=== PATIENT | female | born 1950 | race Caucasian/White ===

== ENCOUNTER 2019-04-30 07:41 | Day surgery (SDC) | payer MEDICARE, OTHER ==
[~2019-04-30] VITALS: Ht 152.4 cm; Wt 83.5 kg
[~2019-04-30 07:41] MED LIST: ASPIRIN EC81 MG PO; ATORVASTATIN CA40 MG PO; COZAAR100 MG PO; FENOFIBRATE160 MG PO; KLOR-CON M2020 MEQ PO; METOPROLOL SUCC50 MG PO; MULTI-VITAMIN1 EACH PO; TRIAMTERENE-HC1 EAC3 PO; VITAMIN D32000 UNI1 PO
--- NOTE | 2019-04-30 08:52 | NUR ---
ADVISED MARISOL CHEW THAT PATIENT STILL HAVING BM, MOSTLY LIQUID. UP TO RESTROOM 3 TIMES WHILE CHECKING PATIENT IN.
--- NOTE | 2019-04-30 09:16 | NUR ---
04/30/19 0916 Sheets,Faith 0903 PT ARRIVED TO PACU, PT WAKES TO TACTILE STIMULI AND RESP EVEN AND UNLABORED ON 2L VIA NC. 904 CO2 DECREASED AND RN WAKES PT AND ENCOURAGES DEEP BREATHING. PT FALLS EASILY BACK TO SLEEP.
--- NOTE | 2019-05-01 07:14 | OR ---
[facility] [address] [place], [place] [address] Signed DATE OF OPERATION: 04/30/2019 SURGEON: Chelly Yousif MD PREOPERATIVE DIAGNOSES: 1. Hyperplastic polyps in 2003 and 2008. 2. Internal hemorrhoids. POSTOPERATIVE DIAGNOSES: 1. Minimal sigmoid diverticulosis. 2. Xbzbhbm-vx-phpaoxcs internal hemorrhoids. PROCEDURE PERFORMED: Colonoscopy without biopsy. ESTIMATED BLOOD LOSS: None. INDICATIONS: Jose is a 68-year-old female asked to see me for followup colonoscopy. She had a tiny hyperplastic polyp removed from her distal sigmoid colon in [address] Venancio Whitaker. Then in 2008, she had two tiny hyperplastic polyps taken of the distal sigmoid colon. She is known to have a little bit internal hemorrhoids. She reminded me today that her mother just turned 100. She is still doing well except for a little dementia. Jose herself looks younger than her stated age. She maintains excellent functional status. She has no lower GI complaints. Otherwise, no family history of colon cancer or polyps. In the office, I gave Jose a pamphlet on colonoscopy. We looked at that together along with the risks including, but not limited to gas bloating, crampy abdominal pain, bleeding, perforation requiring surgery, and missed diagnosis. We also discussed the need for IV conscious sedation. She had expressed understanding and wished to proceed. PROCEDURE NOTE: Jose was taken into our endoscopy suite and placed in the left lateral decubitus position. She was given a total of 7 mg of Versed and 100 mcg of fentanyl. A digital rectal exam was performed and this was unremarkable. The adult colonoscope was introduced and advanced under direct visualization of camera. It took some extra sedation and abdominal compression in order to advance the scope around the hepatic flexure and down into the cecum itself. Her prep was quite good. The scope was slowly withdrawn. We could easily see the appendiceal orifice and the ileocecal valve. She Electronically Signed By: CHELLY YOUSIF MD 05/01/19 0714 PATIENT NAME: JOSE MCMILLAN OPERATIVE REPORT DATE OF : 54 REPORT #: [id number] PHYSICIAN: CHELLY YOUSIF MD PCP: CRYSTAL ARANGO MD REPORT IS CONFIDENTIAL AND NOT TO BE RELEASED WITHOUT AUTHORIZATION [facility] [address] [place] [id number] Bre had a few diverticula in the proximal sigmoid colon. They were small in size, few in number, and scattered about. We saw no polyps on this occasion. The rectum was unremarkable. Upon retroflexion of scope, she has some qhtgmyn-ly-ioqonixl internal hemorrhoid tissue. After this, the gas was suctioned out and colonoscope removed. Jose tolerated the procedure quite well. RECOMMENDATIONS: Jose can return in 10 years for repeat colonoscopy. MD NEERAJ Carmichael/MARCIL /[id number] cc: Patient's Chart MD Crystal Carmichael MD Copies: CHELLY YOUSIF MD, JONATHAN MD ~ Electronically Signed By: CHELLY YOUSIF MD 05/01/19 0714 PATIENT NAME: JOSE MCMILLAN OPERATIVE REPORT DATE OF : 54 REPORT #: [id number] PHYSICIAN: CHELLY YOUSIF MD PCP: CRYSTAL ARANGO MD REPORT IS CONFIDENTIAL AND NOT TO BE RELEASED WITHOUT AUTHORIZATION
== END 2019-04-30 09:51 | disposition home or self-care (01) ==
LOC: DS 07:41 → OPS 07:41 → DS 09:00 → OPS 09:00
PROVIDERS: Colon & Rectal Surgery
PROC: 0DJD8ZZ Inspection of Lower Intestinal Tract, Via Natural or Artificial Opening Endoscopic (ICD-10-PCS; principal; 2019-04-30 09:00)
DX: Z12.11 Encounter for screening for malignant neoplasm of colon (principal); K64.8 Other hemorrhoids; K57.30 Diverticulosis of large intestine without perforation or abscess without bleeding; I10 Essential (primary) hypertension; E78.00 Pure hypercholesterolemia, unspecified; M19.90 Unspecified osteoarthritis, unspecified site; Z86.010 Personal history of colon polyps; Z79.82 Long term (current) use of aspirin; Z79.899 Other long term (current) drug therapy; Z98.890 Other specified postprocedural states
CPT/HCPCS: G0500; J2250; J3010; J7121

== ENCOUNTER 2023-03-12 14:44 | Emergency (ER) | payer MEDICARE, OTHER ==
[~2023-03-12] VITALS: Ht 152.4 cm; Wt 84.8 kg
[2023-03-12 15:06] LABS: BASOPHILS 1.8 % (0-2); EOSINOPHILS 5.1 % (0-6); HEMATOCRIT 44.4 % (35.0-50.0); HEMOGLOBIN 14.8 g/dL (12.0-18.0); MCH 28.1 (27-36); MCHC 33.4 g/dl (30-36); MCV 84.2 fl (81-99); MONOCYTES 7.3 % (0-12); NEUTROPHILS 59.8 % (39-80); PLATELET COUNT 243 K/uL (140-440); RBC 5.27 M/ul (4.3-5.7); RDW 14.3 (10.5-15.0)
[2023-03-12] MEDS ORDERED: DICYCLOMINE HCL20 MG PO (15:19)
[2023-03-12 15:21] LABS: ALBUMIN 4.3 g/dL (3.4-5.0); ALBUMIN/GLOBULIN RATIO 1.48 (1.1-2.4); ANION GAP 13.3 (7-21); BILIRUBIN, TOTAL 0.6 ng/dL (0.2-1.0); BUN/CREATININE RATIO 19.38 (6.0-28.6); CALCIUM 9.5 mg/dL (8.5-10.1); CREATININE, SERUM 0.98 mg/dL (0.55-1.02); MAGNESIUM 1.8 mg/dL (1.8-2.4); POTASSIUM 3.3 mmol/L (3.5-5.1); PROTEIN, TOTAL 7.2 g/dL (6.4-8.2)
[2023-03-12 16:57] VITALS: BP 142/69
--- NOTE | 2023-03-13 18:24 | EKG ---
[facility] [address] [facility] [place], [place] [address] Signed Atrial flutter with variable AV block ST \T\ T wave abnormality, consider lateral ischemia Abnormal ECG No previous ECGs available Confirmed by [facility]I MD ([id number]) on 03/13/2023 6:24:33 PM Electronically Signed By: [facility] CHI 03/13/23 1824 PATIENT NAME: JOSE MCMILLAN Electrocardiogram DATE OF : 54 PHYSICIAN: [facility]I REPORT #: [id number] REPORT IS CONFIDENTIAL AND NOT TO BE RELEASED WITHOUT AUTHORIZATION
--- NOTE | 2023-03-13 18:24 | EKG ---
[facility] [address] [facility] [place], [place] [address] Signed Normal sinus rhythm Nonspecific ST abnormality Abnormal ECG No previous ECGs available Confirmed by [facility]I MD ([id number]) on 03/13/2023 6:24:40 PM Electronically Signed By: [facility]I 03/13/23 1824 PATIENT NAME: JOSE MCMILLAN Electrocardiogram DATE OF : 54 PHYSICIAN: [facility] REPORT #: [id number] REPORT IS CONFIDENTIAL AND NOT TO BE RELEASED WITHOUT AUTHORIZATION
== END 2023-03-12 16:58 | disposition home or self-care (01) ==
LOC: ED 14:44
PROVIDERS: Emergency Medicine
DX: I48.0 Paroxysmal atrial fibrillation (principal); I10 Essential (primary) hypertension; Z79.899 Other long term (current) drug therapy; Z79.82 Long term (current) use of aspirin
CPT/HCPCS: 36415; 71045; 80053; 83735; 84484; 85025; 93005; 93010; A9270